=== PATIENT | female | born 1935 | race Caucasian/White ===

== ENCOUNTER → 2017-06-15 | Outpatient (CLI) | payer MEDICARE, OTHER ==
[~2017-06-15] MED LIST: ACE3 PO; ACE500 PO; ACET-1966 PO; AMLO-543 PO; AMLO-96 PO; CALC-797 PO; CALC600T63 PO; CARB15DR72 OP; CRAN200C5 PO; EST3 PO; EST625 PO; ESTR0.62 PO; GLUC-232 PO; GLUC15002 PO; HYDR-2954 PO; LEVO75TA68 PO; LISI-347 PO; LOSA50TA72 PO; MULT-770 PO; MULT-865 PO; ONDA4TAB PO; PRA20 PO; PRAV20TA65 PO; TERB250T74 PO; ZINC30TA5 PO; [UNRECOGNIZED DRUG - CODE] PO; [UNRECOGNIZED DRUG - OTHER] PO
--- NOTE | 2017-06-15 08:52 | EKG ---
FACILITY: [facility] - [place] PATIENT NAME: ALEX VILLATORO : [id number] MR: [id number] V: [id number] EXAM DATE: ORDERING PHYSICIAN: SAM HAMILTON TECHNOLOGIST: Andrea Richardson Reason : Blood Pressure : / mmHG Vent. Rate : 060 BPM Atrial Rate : 060 BPM P-R Int : 200 ms QRS Dur : 074 ms QT Int : 440 ms P-R-T Axes : 067 -10 059 degrees QTc Int : 440 ms Normal sinus rhythm Low voltage QRS Borderline ECG When compared with ECG of 01-DEC-2014 12:16, QT has shortened Confirmed by KENDRA ANTOINE ([id number]) on 06/15/2017 2:56:57 PM Referred By: Confirmed By:KENDRA ANTOINE
== END ==
LOC: RESP 08:28
PROVIDERS: ATTEND Anesthesiology
DX: Z01.810 Encounter for preprocedural cardiovascular examination (principal); G24.5 Blepharospasm; R94.31 Abnormal electrocardiogram [ECG] [EKG]
CPT/HCPCS: 93005

== ENCOUNTER → 2018-01-22 | Outpatient (CLI) | payer MEDICARE, OTHER ==
[~2018-01-22] MED LIST changes: +ACET-2146 PO; +CALC-864 PO; +CRAN500C11 PO; +DEXT350P PO; +PRAV40TA78 PO
--- NOTE | 2018-01-25 08:32 | RADIOLOGY IMAGING REPORT ---
FACILITY: [facility] - [place] PATIENT NAME: ALEX VILLATORO : [id number] MR: [id number] V: [id number] EXAM DATE: ORDERING PHYSICIAN: SAM HAMILTON TECHNOLOGIST: Aylin Marie PROCEDURE:BILATERAL DIGITAL SCREENING MAMMOGRAM WITH CAD ASSISTED INTERPRETATION & 3D TOMOSYNTHESIS COMPARISON:Prior mammograms 01/14/17 with priors to 11/08/13. INDICATIONS:Screening, previous surgical excision benign biopsies times 2 in the Left breast. FINDINGS: The breasts have scattered fibroglandular parenchymal densities. Spiculated density in the posterior 12 o'clock area of the Left breast is not significantly changed and presumably scaring from previous surgical excision. Semi nodular asymmetry in the lower outer effect of the Left breast and the smaller nodular lower outer quadrant asymmetry in the Right breast are mammographically stable. No concerning new mammographic findings on either side. DIAGNOSTIC CATEGORY 2--BENIGN FINDING. RECOMMENDATIONS: ROUTINE MAMMOGRAM AND CLINICAL EVALUATION IN 1 YR. IMPRESSION: BIRADS 2: Benign finding. Dictated by: Ino Stone on 01/22/2018 at 14:54 Transcribed by: DANY on 01/22/2018 at 15:09 Approved by: Raoul Castelan M.D. on 01/25/2018 at 8:31 [facility]
== END ==
LOC: MAMO 02:03
PROVIDERS: ATTEND Family Medicine
DX: Z12.31 Encounter for screening mammogram for malignant neoplasm of breast (principal)
CPT/HCPCS: 77063; 77067

== ENCOUNTER → 2018-07-27 | Outpatient (CLI) | payer MEDICARE, OTHER ==
[~2018-07-27] MED LIST changes: +AMLO-125 PO; -AMLO-96 PO; -LOSA50TA72 PO; +LOSA50TA80 PO
[2018-07-27 14:05] LABS: PLATELET COUNT, AUTOMATED 247 K/uL (150-450)
== END ==
LOC: LAB 13:45
PROVIDERS: ATTEND Family Medicine
DX: E03.9 Hypothyroidism, unspecified (principal); I10 Essential (primary) hypertension
CPT/HCPCS: 36415; 82040; 82247; 82310; 82374; 82435; 82565; 82947; 84075; 84132; 84155; 84295; 84443; 84450; 84460; 84520; 85025

== ENCOUNTER → 2018-12-16 | Outpatient (CLI) | payer MEDICARE, OTHER ==
--- NOTE | 2018-12-16 14:09 | RADIOLOGY IMAGING REPORT ---
FACILITY: [facility] - [place] PATIENT NAME: Delicia Teague : 1935 MR: [id number] V: [id number] EXAM DATE: ORDERING PHYSICIAN: TIO NULL TECHNOLOGIST: Location: [facility] [place] Patient: Delicia Teague : 1935 Visit/Account:[id number] Date of Sevice: 12/16/2018 Abdominal ultrasound Indication: Abdominal pain Comparison: None Findings: Liver is normal in size, contour, and echotexture and measures 15.1 cm in length. There is normal hep atopedal portal venous flow. The spleen is normal in size, contour, and echotexture and measures 5.1 cm in length. Gallbladder wall thickness is 1.8 mm with no evidence of shadowing stone or sludge within the gallbla dder lumen. Negative sonographic Stuart's sign reported by the technologist. Common duct measures 9.2 mm in maximum diameter with no evidence of shadowing stone. The head and proximal body of the pancreas is unremarkable. The distal body and tail is obscured by o verlying bowel gas. Abdominal aorta and IVC are patent and unremarkable. The bilateral kidneys are normal in size, contour, and echotexture with the right kidney measuring 1 0.4 cm and the left kidney measuring 11.0 cm. IMPRESSION: 1. Unremarkable abdominal ultrasound as above. Report Dictated By: Malcom Martin at 12/16/2018 2:00 PM Report E-Signed By: Malcom Martin at 12/16/2018 2:01 PM WSN:[email or web address]
== END ==
LOC: US 11:28
PROVIDERS: ATTEND Nurse Practitioner Family
DX: R10.11 Right upper quadrant pain (principal); R14.0 Abdominal distension (gaseous)
CPT/HCPCS: 76700